=== PATIENT | male | born 1970 | race Hispanic/Latino ===

== ENCOUNTER 2017-11-19 12:30 | Emergency (ER) | payer SELFPAY | END 2017-11-19 14:07 | disposition home or self-care (01) | LOC: EDH 12:30 | DX: S83.8X2A Sprain of other specified parts of left knee, initial encounter (principal); Z72.0 Tobacco use; W18.39XA Other fall on same level, initial encounter; Y93.89 Activity, other specified; Y92.69 Other specified industrial and construction area as the place of occurrence of the external cause; Y99.8 Other external cause status | CPT/HCPCS: 73562 ==

== ENCOUNTER 2023-12-22 16:40 | Emergency (ER) | payer OTHER ==
[~2023-12-22] VITALS: Ht 167.6 cm; Wt 88.5 kg
[2023-12-22] MEDS ORDERED: IBUP-2077 PO (16:49)
[2023-12-22] MEDS ORDERED: CYCL10TA16 PO (16:49)
[2023-12-22 16:50] VITALS: BP 132/74; PULSE 68; RESP 18
[2023-12-22] MEDS: KETOROLAC 60 MG VIAL (30MG/ML) IM ONE (17:33)
== END 2023-12-22 18:12 | disposition home or self-care (01) ==
LOC: EDH 16:40
DX: S39.012A Strain of muscle, fascia and tendon of lower back, initial encounter (principal); V48.9XXA Unspecified car occupant injured in noncollision transport accident in traffic accident, initial encounter; Y93.I9 Activity, other involving external motion; Y92.89 Other specified places as the place of occurrence of the external cause; Y92.488 Other paved roadways as the place of occurrence of the external cause
CPT/HCPCS: 99283; 96372; J1885